=== PATIENT | male | born 1990 | race Caucasian/White ===

== ENCOUNTER 2019-06-16 02:52 | Emergency (ER) | payer SELFPAY ==
[2019-06-16] MEDS ORDERED: Lidocaine 1% w/Epinephrine 1:100K 20 ML VIAL ONE (03:11)
[2019-06-16] MEDS ORDERED: Triple Antibiotic Oint 1 GM Packet ONE (03:44)
[2019-06-16] MEDS ORDERED: Sodium Chloride Irrig Solution 250 ML BOT ONE (08:10)
--- NOTE | 2019-06-16 08:19 | RAD ---
RIGHT FOREARM TWO VIEWS: INDICATIONS: Trauma. COMPARISON: None. FINDINGS: There is an obliquely oriented, nondisplaced fracture involving the proximal ulnar shaft. There is ve ry slight medial angulation of the ulnar shaft. There is a remote healed fracture involving the dista l ulnar shaft. IMPRESSION: Nondisplaced, mildly angulated proximal ulnar shaft fracture. POS: [facility]
== END 2019-06-16 04:50 | disposition home or self-care (01) ==
LOC: MADERS 02:52
DX: S52.201A Unspecified fracture of shaft of right ulna, initial encounter for closed fracture (principal); S01.111A Laceration without foreign body of right eyelid and periocular area, initial encounter; S01.81XA Laceration without foreign body of other part of head, initial encounter; W17.89XA Other fall from one level to another, initial encounter; Y92.009 Unspecified place in unspecified non-institutional (private) residence as the place of occurrence of the external cause
CPT/HCPCS: 12014; 25530; J2001